=== PATIENT | female | born 1975 | race Caucasian/White ===

== ENCOUNTER 2024-07-17 11:01 | Outpatient (RCR) | payer BC, SELFPAY ==
[2024-07-17] MEDS: SODIUM CHLORIDE 0.9 % (FLUSH) 10 ML SYRINGE IVF ×2 (11:00→14:20)
[2024-07-17 11:25] VITALS: BP 124/82; PULSE 70; RESP 18; TEMP 36.5; O2SAT 95
[2024-07-17] MEDS: IRON DEXTRAN COMPLEX 25 MG in 0.9 % SODIUM CHLORIDE 100 ml 100 ML 402 MG IVPB (11:52)
[2024-07-17 12:14] VITALS: BP 127/82; PULSE 71; RESP 18; O2SAT 94
[2024-07-17] MEDS: IRON DEXTRAN COMPLEX 975 MG in 0.9 % SODIUM CHLORIDE 250 ml 250 ML 270 MG IVPB (12:59)
[2024-07-17 13:30] VITALS: BP 132/80; PULSE 73; RESP 18; O2SAT 95
[2024-07-17 14:56] VITALS: BP 109/76; PULSE 66; RESP 16; O2SAT 95
[2024-07-17 15:30] VITALS: PULSE 70; RESP 16; TEMP 36.6; O2SAT 95
== END 2025-01-13 23:59 | disposition home or self-care (01) ==
LOC: CCIC 11:01
PROVIDERS: PCP Family Medicine; Visit Provider Clinical Nurse Specialist
DX: D50.9 Iron deficiency anemia, unspecified (principal)
CPT/HCPCS: 96365; 96366; 99213; G0463; A9270; J1750; J7050

== ENCOUNTER 2024-11-30 08:16 | Outpatient (CLI) | payer BC, SELFPAY | END 2024-11-30 08:17 | disposition home or self-care (01) | LOC: NFLDREF 12-01 13:44 | PROVIDERS: PCP Family Medicine; Referring Provider Family Medicine; Visit Provider Family Medicine | DX: R82.90 Unspecified abnormal findings in urine (principal) | CPT/HCPCS: 87086 ==